=== PATIENT | male | born 1985 | race Caucasian/White ===

== ENCOUNTER 2025-05-02 19:26 | Emergency (ER) | payer OTHER, SELFPAY ==
--- NOTE | ~2025-05-02 | US_ITS ---
EXAMINATION: US THYROID HISTORY: weight loss, tremulousness, hx hyperactive thyroid TECHNIQUE: Real-time grayscale ultrasound imaging was performed and images were reviewed. COMPARISON: There are no prior studies available for comparison. FINDINGS: SIZE: The right thyroid lobe measures 5.3 x 1.6 x 1.8 cm. The left thyroid lobe measures 5.8 x 1.6 x 2.0 cm. The isthmus measures 4 mm. FLOW: Flow to the gland is increased. ECHOGENICITY: The echotexture of the gland is homogeneous. NODULES: No nodules are identified. US/US thyroid IMPRESSION: Mildly hypervascular thyroid gland. Otherwise unremarkable thyroid ultrasound. Correlation with thyroid function tests is recommended. ACR TI-RADS Guidelines TR1 (0 points): Benign. No follow-up or biopsy required TR2 (2 points): Not Suspicious. No biopsy or follow up indicated TR3 (3 points): Mildly Suspicious. FNA if >= 2.5 cm, Follow if >= 1.5 cm TR4 (4-6 points): Moderately Suspicious. FNA if >= 1.5 cm, Follow if >= 1.0 cm TR5 (>=7 points): Highly Suspicious. FNA if >= 1.0 cm, Follow if >= 0.5 cm Electronically signed by: Bright Aquino MD 05/03/2025 08:04 AM EDT
--- NOTE | ~2025-05-02 | XR_ITS ---
CLINICAL HISTORY: fatigue, chest pain 2 view chest x-ray Comparison: None provided Findings: Mild opacities of the right heart border may reflect atelectasis and/or pneumonitis. No pneumothorax or pleural effusion. Mild hyperexpansion of the lungs can be seen with asthma, emphysematous changes, and reactive airway disease. Heart size is normal. No acute fracture. IMPRESSION: Mild opacity right heart border are nonspecific and may reflect pneumonitis. This document has been electronically signed by: Joe Oropeza MD on 05/02/2025 20:34:37
--- NOTE | 2025-05-02 19:30 | ECG_ITS ---
Test Reason : CP Blood Pressure : */* mmHG Vent. Rate : 89 BPM Atrial Rate : 89 BPM P-R Int : 156 ms QRS Dur : 88 ms QT Int : 354 ms P-R-T Axes : 82 251 68 degrees QTcB Int : 430 ms Normal sinus rhythm Possible Left atrial enlargement Right superior axis deviation Pulmonary disease pattern Right ventricular hypertrophy Abnormal ECG No previous ECGs available Referred By: Generic ED Physician Electronically Signed By: NOLA EID MD
[2025-05-02 19:50] VITALS: BP 147/83; PULSE 87; RESP 18; TEMP 36.4; O2SAT 100; BMI 19.7
--- NOTE | 2025-05-02 19:53 | ED.GENADULT ---
HPI - General Adult General Chief complaint: General Medical Stated complaint: chest pain,sob ? thyroid issues Time Seen by Provider: 05/02/25 22:08 Source: patient and family Mode of arrival: ambulatory Limitations: no limitations History of Present Illness ED Provider: Dr. Liudmila Hobbs HPI narrative: 39-year-old male with history of thyroid disorder presenting with palpitations, weight loss, shortness of breath, decreased appetite and anxiety ongoing for the last several weeks to months. Patient came to the emergency department today because he thought he might pass out. Occasionally feels his heart rate race and has to sit down because he gets near syncopal. Has not lost consciousness completely. Denies associated headaches or vision changes. No reported fever. Admits he was diagnosed with a thyroid condition several years ago but does not take medication for it and has never really followed up about it. He does not have a primary care doctor. Describes unintended 25 lb weight loss and occasional difficulty swallowing. Denies abdominal pain or vomiting. No known sick contacts or travel. No tick bites or exposures that he is aware of. Related Data Previous Rx's ?Medication ?Instructions ?Recorded hydroxyzine HCl 50 mg tablet 50 mg PO TID PRN anxiety #20 tabs 05/03/25 Allergies Allergy/AdvReac Type Severity Reaction Status Date / Time No Known Allergies Allergy Verified 05/02/25 19:53 Review of Systems Review of Systems: as per HPI, full review of systems performed and negative but for the above mentioned pertinent positives and negatives. [facility] Past Medical History Attestation statement: The following information was validated with the patient. [facility] Narrative: Denies alcohol, tobacco or illicit substance use Social History Social History Smoked in Last 30 Days: No Use of substances other than those prescribed or required for medical reasons: No Advance Directives: No Advance Directives Information Provided: No Physical Exam ED Exam Exam: GENERAL: Anxious, cachectic. SKIN: Normal skin color for ethnicity, warm, dry, intact, no rashes noted. HEENT: Normocephalic, atraumatic, no stridor, posterior oropharynx nonerythematous, dentition intact, EOMI. NECK: Soft, supple, full ROM, midline structures nontender, no step-offs, no cervical lymphadenopathy, thyroid is enlarged, no palpable nodules. CHEST: Heart regular rhythm, no murmurs, symmetric chest rise and fall, no crepitus. PULMONARY: Clear to auscultation bilaterally, no labored breathing, no wheezes/rhales/ rhonchi. ABDOMINAL: Soft, nondistended, nontender, positive bowel sounds in all quadrants. : Deferred. MUSCULOSKELETAL: Normal tone, full range of motion, no deformities, no peripheral edema. NEURO: Alert and oriented x3, CN II through XII intact, equal strength and sensation bilateral upper and lower extremities, no focal neurologic deficits. PSYCHIATRIC: Anxious affect, fluid speech, good eye contact and appropriate demeanor. Vital Signs: Vital Signs - 24 hr 05/02/25 19:50 05/02/25 22:23 05/03/25 00:09 Temperature 97.5 F 97.8 F Pulse Rate 87 80 71 Respiratory Rate 18 16 18 Blood Pressure 147/83 H 153/89 H 119/77 Pulse Oximetry 100 100 99 Oxygen Delivery Method Room Air Room Air Room Air BMI result Body Mass Index 19.7 Course Course Course Narrative: This is a rapid medical exam performed by Gómez Lou NP: Additional HPI, ROS, PE not included below will be deferred to primary provider. Patient is a 39-year-old male presenting with complaint of chest pain, fatigue, decreased appetite, dizziness, lightheadedness for the past few weeks. States symptoms are affecting his job. Plan: EKG, labs including tick panel, viral swabs, CXR Medications Administered Discontinued Medications Generic Name Dose Route Start Last Admin Trade Name Freq PRN Reason Stop Dose Admin Lactated Ringer's 1,000 mls @ 999 mls/hr 05/02/25 23:41 05/03/25 01:03 Lr IV 05/03/25 00:41 Infused .Q1H1M ONE Infusion Lorazepam 1 mg 05/03/25 00:51 05/03/25 01:04 Lorazepam 1 Mg Tablet PO 05/03/25 00:52 1 mg ONCE ONE Administration Medical Decision Making Medical Decision Making [facility] Narrative: Patient presenting with chief complaint of heart palpitations. Differential diagnosis includes heart palpitations, electrolyte abnormality, arrhythmia, ACS, thyroid dysfunction, substance use including stimulants such as caffeine, amphetamines, drug toxicity, among many others. Most concerning but this patient's presentation is his 25-30 lb weight loss over the last several weeks which is unintended. He has some kind of thyroid issue but does not know what the diagnosis is or what medications he had previously been on to treat it. He does not have follow-up with any primary care providers. That being said, I will add on thyroid function studies, thyroid ultrasound, tick-borne panel, D-dimer. Workup today has been reassuring. Thyroid shows some hyperemia however, I do not see any evidence of nodules or other concerning masses. Final read by radiologist we will be later today. Discuss this with the patient at length. Informed him that he needs to follow up with the primary care provider and provided him with list to call around. Using shared decision making, plan for discharge home to follow-up with primary care and/or specialist. Patient understands and agrees with plan for discharge. Discharged home in stable condition. Differential Diagnosis Differential Diagnoses: The differential diagnosis associated with the presentation includes (As above) Admission/Observation Consideration of admission/observation: Escalation of care including admission/observation considered Lab Data MDM Lab Attestation statement: I reviewed the patient's lab results. 05/02/25 20:06 05/02/25 20:06 Labs: Lab Results 05/02/25 05/03/25 Range/Units 20:06 00:30 WBC 8.4 (4.8-10.8) X10*3/uL RBC 5.76 (4.60-5.80) X10*6/uL Hgb 16.6 (14.0-18.0) g/dl Hct 46.1 (42.0-52.0) % MCV 80.0 (80.0-98.0) fL MCH 28.8 (27.0-33.0) pg MCHC 36.0 (31.0-36.0) g/dl RDW 12.0 (11.0-16.0) % Plt Count 300 (160-400) X10*3/uL MPV 9.9 (9.4-12.4) fL Immature Gran % (Auto) 0.1 (0.0-0.4) % Neut % (Auto) 63.9 (45-73) % Lymph % (Auto) 25.2 (20-40) % Elk % (Auto) 9.2 (2-11) % Eos % (Auto) 0.9 (0-4) % Baso % (Auto) 0.7 (0-2) % Lymph # (Auto) 2.1 (1.2-4.9) X10*3/uL Elk # (Auto) 0.8 (0.1-1.2) X10*3/uL Eos # (Auto) 0.1 (0.0-0.4) X10*3/uL Baso # (Auto) 0.1 (0.0-0.2) X10*3/uL Abs Immat Gran (auto) 0.01 (0.00-0.03) X10*3/uL Absolute Neuts (auto) 5.4 (2.0-8.3) x10*3/uL Absolute Nucleated RBC 0.000 (0.0-0.012) X10*3/uL Nucleated RBC % (auto) 0.0 (0.0-0.2) /100WBC D-Dimer High Sensitivty < 150 NG/ML Sodium 139 (135-145) mmol/L Potassium 3.7 (3.3-5.1) mmol/L Chloride 107 (96-108) mmol/L Carbon Dioxide 22 (22-29) mmol/L Anion Gap 14 (12-20) BUN 20 H (9-16) mg/dL Creatinine 1.04 (0.5-1.4) mg/dL Estim Creat Clear Calc 98.4 Estimated GFR > 60 Random Glucose 118 H (60-115) mg/dL Calcium 9.5 (8.4-10.2) mg/dL Magnesium 1.9 (1.6-2.6) mg/dL Total Bilirubin 0.8 (0.0-1.0) mg/dL AST 24 (5-37) U/L ALT 25 (0-40) U/L Alkaline Phosphatase 61 (39-117) U/L Troponin I High Sens < 2.7 (<3.5-35.0) ng/L Total Protein 8.1 H (6.5-8.0) g/dL Albumin 5.1 H (3.5-5.0) g/dL TSH 3.84 (0.32-4.0) uIU/mL A.phagocytophil DNA PCR NOT DETECTED (NOT DETECTED) Babesia microti DNA PCR NOT DETECTED (NOT DETECTED) Borrelia sp DNA (PCR) NOT DETECTED (NOT DETECTED) Borrelia miyamotoi (PCR) NOT DETECTED (NOT DETECTED) E.chaffeensis DNA (PCR) NOT DETECTED (NOT DETECTED) Influenza Type A (PCR) NEGATIVE (Negative) Influenza Type B (PCR) NEGATIVE (Negative) RSV RNA Qual (PCR) NEGATIVE (Negative) SARS-CoV-2 RNA (RT-PCR) NEGATIVE (Negative) Tick-borne Disease PCR SEE NOTE Independent Interpretation I performed an independent interpretation of an: EKG and Plain X-Ray Interpretation: My independent interpretation of the ECG reveals normal sinus rhythm with rate of 89, extreme right axis deviation, normal intervals, no ST elevations or depressions to suggest ischemic changes, LVH, no previous for comparison. My independent interpretation of the chest x-ray reveals no consolidations, pulmonary edema, pleural effusion, pneumothorax, obvious bony abnormalities. Radiology Impression Discussion of test interpretation with radiology: I have reviewed the radiologist's reading. Discharge Plan Discharge Clinical Impression: Chronic dyspnea, Fatigue, Unintended weight loss, Heart palpitations Patient Disposition: Home, Self-Care Instructions: Hyperthyroidism (ED) Additional Instructions: Please call around for some of the primary care providers in the area to establish long term care phlebotomist care. Were blood work in the emergency department was reassuring however, if you continue to experience weight loss and fatigue, you need to have more of a thorough workup. This needs to be done at an outpatient center. If you develop any new or worsening symptoms including: Worsening chest pain, difficulty breathing, fevers greater than 100?, inability to tolerate food or drink that she should return to the ER immediately. Call 911 with any medical emergency. Prescriptions: New hydroxyzine HCl 50 mg tablet 50 mg PO TID PRN (Reason: anxiety) Qty: 20 0RF Stand Alone Forms: Work/School Release Interventions: ED Discharge Assessment Last Done: 05/03/25 03:19 Discharge Date/Time: 05/03/25 03:20 Print Language: Citizen Of [place]
[2025-05-02 20:17] LABS: MANUAL DIFF FLAG NO
[2025-05-02 20:19] LABS: Hematocrit 46.1 % (42.0-52.0); Hemoglobin 16.6 g/dl (14.0-18.0); Imm Gran Abs Auto 0.01 X10*3/uL (0.00-0.03); Imm Gran Pct Auto 0.1 % (0.0-0.4); Lymphocytes Absolute Auto 2.1 X10*3/uL (1.2-4.9); Mean Corpuscular HGB Conc 36.0 g/dl (31.0-36.0); Mean Corpuscular Hemoglobin 28.8 pg (27.0-33.0); Mean Corpuscular Volume 80.0 fL (80.0-98.0); NRBC Abs Auto 0.000 X10*3/uL (0.0-0.012); NRBC Pct Auto 0.0 /100WBC (0.0-0.2); Platelet Count 300 X10*3/uL (160-400); Red Blood Count 5.76 X10*6/uL (4.60-5.80); White Blood Count 8.4 X10*3/uL (4.8-10.8)
[2025-05-02 20:33] LABS: Alanine Aminotransferase 25 U/L (0-40); Albumin Level 5.1 g/dL (3.5-5.0); Alkaline Phosphatase 61 U/L (39-117); Anion Gap 14 (12-20); Aspartate Amino Transferase 24 U/L (5-37); Blood Urea Nitrogen 20 mg/dL (9-16); Calcium 9.5 mg/dL (8.4-10.2); Carbon Dioxide 22 mmol/L (22-29); Chloride 107 mmol/L (96-108); Creatinine Clr Calc Pharmacy 98.4; Estimated Glomerular Filt Rate > 60; Magnesium 1.9 mg/dL (1.6-2.6); Potassium 3.7 mmol/L (3.3-5.1); Sodium 139 mmol/L (135-145); Total Protein 8.1 g/dL (6.5-8.0)
[2025-05-02 20:55] LABS: Resp Syncy Virus RNA Qual PCR NEGATIVE (Negative); SARS COV2 PCR INHOUSE NEGATIVE (Negative)
[2025-05-02 22:23] VITALS: BP 153/89; PULSE 80; RESP 16; O2SAT 100
[2025-05-02] MEDS: Lactated Ringers 1,000 ML 999 ML IV (23:49)
[2025-05-03 00:06] LABS: Troponin-I High Sensitivity < 2.7 ng/L (<3.5-35.0)
[2025-05-03 00:09] VITALS: BP 119/77; PULSE 71; RESP 18; TEMP 36.6; O2SAT 99
[2025-05-03 00:54] LABS: D Dimer High Sensitivity < 150 NG/ML
--- NOTE | 2025-05-03 01:04 | PC.NURSE ---
pt medicated per dec for anxiety, tolerated whole well with water
[2025-05-03 03:19] VITALS: BP 123/71; PULSE 69; RESP 16; TEMP 36.7; O2SAT 98
[2025-05-05 11:43] LABS: A. Phagocytphilium DNA,RT-PCR NOT DETECTED (NOT DETECTED); Babesia Microti DNA, RT-PCR NOT DETECTED (NOT DETECTED); Borrelia Miyamotoi,DNA RT-PCR NOT DETECTED (NOT DETECTED); E.Chaffeensis DNA RT-PCR NOT DETECTED (NOT DETECTED); Lyme(Borrelia ssp)DNA RT-PCR NOT DETECTED (NOT DETECTED)
== END 2025-05-03 03:20 | disposition home or self-care (01) ==
PROVIDERS: Registered Nurse Emergency; Emergency Provider Emergency Medicine
DX: R00.2 Palpitations (principal); R06.00 Dyspnea, unspecified; R53.83 Other fatigue; R63.4 Abnormal weight loss; Z68.1 Body mass index [BMI] 19.9 or less, adult; R42 Dizziness and giddiness; R06.02 Shortness of breath; E05.90 Thyrotoxicosis, unspecified without thyrotoxic crisis or storm; Z03.818 Encounter for observation for suspected exposure to other biological agents ruled out
CPT/HCPCS: 36415; 71046; 76536; 80053; 83735; 84443; 84484; 85025; 85379; 87468; 87469; 87478; 87484; 87637; 87798; 93005; 96360; 99284; 99285; J7120

== ENCOUNTER → 2025-05-02 19:30 | Outpatient (BNV) | payer OTHER, SELFPAY | PROVIDERS: Emergency Provider Emergency Medicine; Visit Provider Internal Medicine Cardiovascular Disease | DX: I51.7 Cardiomegaly (principal) | CPT/HCPCS: 93010 ==

== ENCOUNTER → 2025-05-02 19:54 | Outpatient (BNV) | payer OTHER, SELFPAY | PROVIDERS: Visit Provider Radiology Neuroradiology | DX: R52 Pain, unspecified (principal) | CPT/HCPCS: 71046 ==

== ENCOUNTER → 2025-05-03 01:10 | Outpatient (BNV) | payer OTHER, SELFPAY | PROVIDERS: Emergency Provider Emergency Medicine; Visit Provider Radiology Diagnostic Radiology | DX: R25.1 Tremor, unspecified (principal) | CPT/HCPCS: 76536 ==